=== PATIENT | female | born 1945 | race Caucasian/White ===

== ENCOUNTER 2018-05-18 10:30 | Emergency (ER) | payer MEDICARE, BC ==
[2018-05-18 11:14] LABS: #Basophils 0.1 thou/uL (0.0-0.2); #Eosinphils 0.2 thou/uL (0.0-0.7); #Lymphocytes 1.5 thou/uL (1.20-3.40); #Monocytes 0.5 thou/uL (0.11-0.59); #Neutrophils 2.6 thou/uL (1.40-6.50); %Basophils 1.4 % (0.0-1.0); %Eosinophils 3.2 % (0.0-10.0); %Lymphocytes 31.4 % (21.0-51.0); %Monocytes 9.9 % (0.0-10.0); %Neutrophils 54.1 % (42.0-75.0); Mean Corpuscular HGB CONC 32.2 g/dL (32.0-36.0); Mean Corpuscular Hemoglobin 29.7 pg (27.0-31.0); Mean Corpuscular Volume 92.4 fL (78.0-98.0); Mean Platelet Volume 7.6 fL (7.4-10.4); Platelet Count 188 thou/uL (130-400); RBC Distribution Width 12.4 % (11.5-14.5); Red Blood Cell (RBC) Count 4.36 mill/uL (4.20-5.40); White Blood Cell (WBC) Count 4.9 thou/uL (4.8-10.8)
[2018-05-18 11:16] LABS: Bilirubin Small (Negative); Blood, Urine Moderate (Negative); Clarity Clear (Clear); Glucose, Urine (Dipstick) 250 mg/dL (Negative); Leukocyte Large (Negative); Nitrite Positive (Negative); Protein, Urine (Dipstick) 100 mg/dL (Neg-Trace)
[2018-05-18 11:25] LABS: ALT (SGPT) 17 U/L (8-55); AST (SGOT) 19 U/L (5-34); Albumin 4.5 g/dL (3.4-4.8); Alkaline Phosphatase 109 U/L (40-150); Anion Gap 15 mmol/L (10-20); BUN (Urea Nitrogen) 14 mg/dL (9.8-20.1); Bilirubin, Total 0.4 mg/dL (0.2-1.2); Calc. Creatinine Clearance 0 mL/min (70-130); Calcium 9.6 mg/dL (7.8-10.44); Carbon Dioxide 26 mmol/L (23-31); Chloride 105 mmol/L (98-107); Estimated GFR-MDRD 65; Globulin 3.1 g/dL (2.4-3.5); Glucose 127 mg/dL (83-110); Lipase 36 U/L (8-78); Potassium 3.7 mmol/L (3.5-5.1); Protein, Total 7.6 g/dL (6.0-8.3); Sodium 142 mmol/L (136-145)
[2018-05-18 11:26] LABS: Bacteria/HPF Rare-Few HPF (None Seen); Other Casts/LPF 0-3 FINELY GRAN LPF (0-3 Hyaline); WBC/HPF 0-3 HPF (0-3)
--- NOTE | 2018-05-18 12:13 | CT ---
CT ABDOMEN AND PELVIS WITHOUT IV CONTRAST: Date: 05/18/18 Multiple axial tomograms obtained through the abdomen and pelvis without IV enhancement. INDICATION: Abdominal pain. No comparison. FINDINGS: Lung bases clear. Liver, spleen, and pancreas are unremarkable. There is subtle density seen along the dependent portion of the gallbladder which could represent tin y stones or gravel. Cholesterol gallstones will not be apparent on CT. Consider gallbladder ultrasoun d. Adrenal glands unremarkable. Kidneys unremarkable. No hydronephrosis or urinary calculus apparent. Th e urinary bladder is contracted and not adequately evaluated. Small bowel loops normal caliber. Appendix appears normal. Scattered diverticula throughout the colon . No CT evidence of diverticulitis. Aorta normal caliber. Uterus and adnexa unremarkable. No mass or adenopathy. A small umbilical hernia is incidentally noted. IMPRESSION: 1. Questionable density layering dependently in the gallbladder as described above. 2. Otherwise no evidence of acute process. POS: JULIANA
== END 2018-05-18 11:45 | disposition home or self-care (01) ==
LOC: MADERS 10:30
DX: N30.01 Acute cystitis with hematuria (principal); E03.9 Hypothyroidism, unspecified; E78.00 Pure hypercholesterolemia, unspecified; F41.9 Anxiety disorder, unspecified; F31.9 Bipolar disorder, unspecified; F20.9 Schizophrenia, unspecified
CPT/HCPCS: 36415; 74176; 80053; 81003; 81015; 83690; 85025; 87086

== ENCOUNTER 2020-04-26 11:13 | Emergency (ER) | payer MEDICARE, BC ==
[2020-04-26] MEDS ORDERED: Lorazepam 2 MG/ML VIAL ONE (11:55)
[2020-04-26 12:00] LABS: #Basophils 0.1 thou/uL (0.0-0.2); #Monocytes 0.7 thou/uL (0.11-0.59); %Basophils 1.5 % (0.0-1.0); %Eosinophils 0.4 % (0.0-10.0); %Monocytes 11.7 % (0.0-10.0); %Neutrophils 69.5 % (42.0-75.0); Mean Corpuscular HGB CONC 33.4 g/dL (32.0-36.0); Mean Corpuscular Hemoglobin 30.7 pg (27.0-31.0); Mean Corpuscular Volume 92.1 fL (78.0-98.0); Mean Platelet Volume 7.6 fL (7.4-10.4); Platelet Count 223 thou/uL (130-400); Red Blood Cell (RBC) Count 3.92 mill/uL (4.20-5.40); White Blood Cell (WBC) Count 5.8 thou/uL (4.8-10.8)
[2020-04-26 12:18] LABS: ALT (SGPT) 62 U/L (8-55); AST (SGOT) 107 U/L (5-34); Albumin 4.2 g/dL (3.4-4.8); Alkaline Phosphatase 77 U/L (40-110); Anion Gap 19 mmol/L (10-20); BUN (Urea Nitrogen) 18 mg/dL (9.8-20.1); Bilirubin, Total 0.8 mg/dL (0.2-1.2); Calc. Creatinine Clearance 0 mL/min (70-130); Calcium 9.5 mg/dL (7.8-10.44); Carbon Dioxide 21 mmol/L (23-31); Chloride 107 mmol/L (98-107); Globulin 2.9 g/dL (2.4-3.5); Glucose 107 mg/dL (83-110); Potassium 3.1 mmol/L (3.5-5.1); Protein, Total 7.1 g/dL (5.8-8.1); Sodium 144 mmol/L (136-145)
[2020-04-26 12:19] LABS: Acetaminophen Less than 6.0 mcg/mL (10.0-30.0); Alcohol Less than 10 mg/dL (Less than 10); Salicylate Less than 8.0 mg/dL (15.0-30.0)
--- NOTE | 2020-04-26 12:20 | CT ---
CT BRAIN NONCONTRAST: DATE: 04/26/2020 HISTORY: 74-year-old female with altered mental status. FINDINGS: There is no evidence of acute intra-axial or extra-axial hemorrhage. There is no midline shift or any other mass effect. There is no extra-axial fluid collection. There is no evidence of obstructive hydrocephalus. Calvarium is intact. Hyperostosis frontalis interna. IMPRESSION: No acute intracranial findings.
[2020-04-26 12:27] LABS: Bilirubin Small (Negative); Blood, Urine Small (Negative); Clarity Clear (Clear); Glucose, Urine (Dipstick) Negative (Negative); Ketone, Urine 40 mg/dL (Negative); Leukocyte Negative (Negative); Nitrite Negative (Negative); Protein, Urine (Dipstick) Trace mg/dL (Neg-Trace); Specific Gravity, Urine 1.021 (1.002-1.036); Urobilinogen 0.2 mg/dL (Less than 2)
[2020-04-26 12:30] LABS: Bacteria/HPF 1+ HPF (None Seen); RBC/HPF 0-3 HPF (0-3); WBC/HPF 0-3 HPF (0-3)
[2020-04-26 12:31] LABS: Amphetamine Not Detected (NotDetected); Barbiturates Screen Not Detected (NotDetected); Benzodiazepine Screen Detected (NotDetected); Cocaine Metabolite Screen Not Detected (NotDetected); Medtox Control Line Valid? VALID (VALID); Methadone Not Detected (NotDetected); Methamphetamine Not Detected (NotDetected); Opiate Screen Not Detected (NotDetected); Oxycodone Screen Not Detected (NotDetected); Phencyclidine (PCP) Not Detected (NotDetected); THC/Cannabinoid Screen Not Detected (NotDetected); Tricyclic Screen Detected (NotDetected)
--- NOTE | 2020-04-26 13:42 | ULT ---
ULTRASOUND ABDOMEN LIMITED: (RIGHT UPPER QUADRANT) DATE: 04/26/2020 HISTORY: 74-year-old female with elevated liver enzymes FINDINGS: Patient sedated with medication, unable to follow instructions. Limited study. Most structures visualized are partially obscured by shadowing from overlying bowel gas and ribs. Gallbladder:12 mm mobile gallstone. Small amount of adjacent sludge. No excessive luminal distention, pericholecystic fluid, or mural thickening. However, clinical coordinator reports positive tenderness over gallbladder. Common duct: 3 mm. Liver:Not enlarged. Small portions of hepatic parenchyma visualized. Parenchymal echogenicity either normal or mildly increased. Pancreas:Nonspecific sonographic appearance. Right kidney:No hydronephrosis. IMPRESSION: Cholelithiasis and small amount of gallbladder sludge
[2020-04-26] MEDS ORDERED: Potassium Chloride 10 MEQ TAB ONE (14:36)
[2020-04-26 14:51] LABS: ALT (SGPT) 55 U/L (8-55); AST (SGOT) 94 U/L (5-34); Albumin 3.8 g/dL (3.4-4.8); Alkaline Phosphatase 67 U/L (40-110); Anion Gap 19 mmol/L (10-20); BUN (Urea Nitrogen) 16 mg/dL (9.8-20.1); Bilirubin, Total 0.7 mg/dL (0.2-1.2); Calc. Creatinine Clearance 0 mL/min (70-130); Carbon Dioxide 19 mmol/L (23-31); Chloride 109 mmol/L (98-107); Globulin 2.5 g/dL (2.4-3.5); Glucose 90 mg/dL (83-110); Potassium 3.1 mmol/L (3.5-5.1); Protein, Total 6.3 g/dL (5.8-8.1); Sodium 144 mmol/L (136-145)
[2020-04-26 18:07] LABS: SARS-CoV-2 NAA Rapid Test Not Detected (NotDetected)
[2020-04-26] MEDS ORDERED: Levothyroxine Sodium 75 MCG TAB PO SCH (22:30)
[2020-04-26] MEDS ORDERED: ALPRAZolam 0.5 MG TAB PO SCH (22:30)
== END 2020-04-27 09:05 ==
LOC: MADERS 11:13
DX: F23 Brief psychotic disorder (principal); R74.8 Abnormal levels of other serum enzymes; E87.6 Hypokalemia; E03.9 Hypothyroidism, unspecified; K21.9 Gastro-esophageal reflux disease without esophagitis; E78.5 Hyperlipidemia, unspecified; E78.00 Pure hypercholesterolemia, unspecified; Z79.899 Other long term (current) drug therapy
CPT/HCPCS: 0240U; 36415; 51701; 70450; 76705; 80053; 80306; 80307; 81003; 81015; 83605; 83735; 84443; 84484; 85025; 87040; 93005; 96374; J2060